=== PATIENT | male | born 1990 | race Hispanic/Latino ===

== ENCOUNTER 2018-05-22 14:09 | Emergency (ER) | payer SELFPAY ==
[~2018-05-22] VITALS: Ht 165.1 cm; Wt 54.4 kg
[2018-05-22] MEDS ORDERED: FAMOTIDINE 20 MG/2 ML VIAL IV ONE (15:45)
[2018-05-22] MEDS ORDERED: SODIUM CHLORIDE 0.9% 1000ML 2,000 ML IV ONE (15:45)
[2018-05-22] MEDS ORDERED: KETOROLAC TROMETHAMINE 30 MG/ML VIAL IV ONE (15:45)
[2018-05-22] MEDS ORDERED: DICYCLOMINE HCL 20 MG/2 ML VIAL IM ONE (15:45)
[2018-05-22] MEDS ORDERED: CLINDAMYCIN PHOS 900MG/ 50ML 50 ML IV ONE (15:45)
[2018-05-22] MEDS ORDERED: MAGNESIUM/ALUMINUM/SIMETHICONE 30 ML UDC PO ONE (15:45)
[2018-05-22 17:26] VITALS: BP 112/67
== END 2018-05-22 17:35 | disposition home or self-care (01) ==
LOC: ER 14:09
DX: R42 Dizziness and giddiness (principal); R53.1 Weakness; R11.2 Nausea with vomiting, unspecified; R10.9 Unspecified abdominal pain; K05.219 Aggressive periodontitis, localized, unspecified severity
CPT/HCPCS: 99283; J0500; J1885; J7030